=== PATIENT | female | born 1990 ===

== ENCOUNTER 2018-08-01 20:57 | Emergency (ER) | payer OTHER ==
--- NOTE | 2018-08-01 23:21 | NUR ---
No number on file for LWOB follow up. DR. PATEL informed.
== END 2018-08-01 22:42 | disposition left against medical advice (07) ==
LOC: ER 21:01
DX: R20.0 Anesthesia of skin (principal); Z53.21 Procedure and treatment not carried out due to patient leaving prior to being seen by health care provider